=== PATIENT | female | born 1960 | race Caucasian/White ===

== ENCOUNTER 2016-11-09 04:04 | Emergency (ER) ==
[2016-11-09] MEDS ORDERED: BENADRYL IV ONE (04:34)
[2016-11-09] MEDS ORDERED: CLARITIN PO ONE (04:35)
[2016-11-09] MEDS ORDERED: PEPCID IV ONE (04:35)
[2016-11-09] MEDS ORDERED: SODIUM CHLORIDE 0.9% INJ ONE (04:35)
[2016-11-09 04:59] LABS: BASO% 0.5 % (0.0-0.8); EOS# 0.19 X1000 (0.0-0.7); EOS% 2.4 % (0.0-10.0); HEMATOCRIT 43.8 % (37.0-47.0); IMM GRAN# 0.02 X1000 (0.0-0.04); IMM GRAN% 0.3 % (0.0-0.5); LYMPH# 2.36 X1000 (1.2-3.4); LYMPH% 29.8 % (20.5-51.1); MANUAL DIFF NEEDED? NO; MCH 30.6 PG (27-31); MCHC 34.2 g/dL (33-37); MCV 89.4 FL (81-99); MONO# 1.09 X1000 (0.11-0.59); MONO% 13.8 % (1.7-9.3); MPV 9.4 FL (7.4-10.4); NEUT% 53.2 % (42.2-75.2); PLT 339 X1000 (130-400)
[2016-11-09] MEDS ORDERED: PEPCID ONE (05:00)
[2016-11-09 05:04] LABS: INR 1.06; PROTIME 11.2 Seconds (9.2-11.7); PTT 35.4 Seconds (22.0-36.0)
[2016-11-09 05:13] LABS: AGAP 16; ALBUMIN 3.8 g/dL (3.5-5.0); ALKALINE PHOSPHATASE 81 U/L (32-104); BUN 12 mg/dL (8-22); CHLORIDE 95 mmol/L (98-107); CK PROFILE 53 U/L (24-173); COSMO 277; GOT < 5 U/L (10-30); GPT < 5 U/L (10-36); MAGNESIUM 1.8 mg/dL (1.5-2.7); POTASSIUM 3.7 mmol/L (3.5-5.1); SODIUM 135 mmol/L (136-145); TCO2 24 mmol/L (25-35); TOTAL BILIRUBIN 0.85 mg/dL (0.20-1.00); TOTAL PROTEIN 6.4 g/dL (6.3-8.3)
--- NOTE | 2016-11-09 05:35 | PROVIDER DOCUMENTATION ---
HPI-Rash/Wound/ReCheck - General Chief Complaint: General Adult Stated Complaint: GENERAL Time Seen by Provider: 11/09/16 04:13 Source: patient Allergies/Adverse Reactions: Allergies Allergy/AdvReac Type Severity Reaction Status Date / Time Penicillins Allergy ANAPHYLAXIS Verified 11/09/16 04:24 Home Medications: Home Medication List Medication Instructions Recorded Confirmed Last Taken Type Escitalopram Oxalate [Lexapro] 10 mg PO HS #0 07/07/14 11/09/16 11/08/16 Rx Fenofibrate [Tricor] 145 mg PO DAILY #0 tablet 07/07/14 11/09/16 11/08/16 Rx Rivaroxaban [Xarelto] 20 mg PO WSUPPER #0 tablet 07/07/14 11/09/16 11/08/16 Rx Amitriptyline HCl 1 tab PO QHS 11/09/16 11/09/16 11/08/16 History Famotidine [Pepcid] 20 mg PO BID #30 tablet 11/09/16 Unknown Rx Gabapentin 600 mg PO BID 11/09/16 11/09/16 11/08/16 History Loratadine [Claritin] 10 mg PO DAILY #14 tablet 11/09/16 Unknown Rx Losartan/Hydrochlorothiazide 1 tab PO DAILY 11/09/16 11/09/16 11/08/16 History [Losartan-Hctz 100-12.5 mg Tab] Metformin HCl 500 mg PO BID 11/09/16 11/09/16 11/08/16 History Metoprolol Succinate E.r. [Toprol 50 mg PO DAILY 11/09/16 11/09/16 11/08/16 History Xl] Niacin [Niacin ER] 1 tab PO QHS 11/09/16 11/09/16 11/08/16 History Spironolactone 25 mg PO DAILY 11/09/16 11/09/16 11/08/16 History - History of Present Illness-Dermatology Nature of Presenting Problem: WAKE UP FEELING ITCHING EVERY WHERE /BURNING SENSATION OF HER BODY ..NO CP,NO SOB,NO AMS...PT ON NIACIN Location: reports: generalized Quality: reports: burning Onset/Duration: reports: gradual, 1-3 hours ago Timing: reports: still present, constant Context/Associated Symptoms: reports: flushing. denies: insect bite/sting, edema, numbness, paresthesia, sore throat, tingling Identifiable cause?: No Exposure: reports: unknown cause Locality of Occurance: Home Similar Symptoms Previously?: Yes Recently seen or treated by another doctor?: No Review of Systems - Adult - REVIEW OF SYSTEMS - ADULT Constitutional: reports: see HPI All Other Systems: Reviewed and Negative Past History - Adult - PAST MEDICAL HISTORY-ADULT Review of Records: reports: Old Records Reviewed, Nursing Assessment Review, Medications Reviewed, Social history reviewed & non-contributory. Major Childhood Illnesses: reports: denies history Cardiovascular: reports: HTN, hyperlipidemia Respiratory: reports: COPD Gastrointestinal: reports: GERD Genitourinary: reports: denies history Musculoskeletal: reports: arthritis Neurological: reports: CVA, TIA Psychiatric: reports: anxiety Endocrine/Immune: reports: other (THICK BLOOD) Other Conditions: reports: denies history - PRIOR SURGERIES/PROCEDURES Surgical/Procedure History: reports: hysterectomy - IMMUNIZATION STATUS Childhood Immunizations: See Nurse Assessment Flu Vaccine: See Nurse Assessment - FAMILY HISTORY Family History: reviewed, not pertinent - SOCIAL HISTORY Smoking: less than 1 pack/day Provider spent 3-5 mins advising pt. on dangers of tobacco.: Discussed manners to quit use, and f/u contacts for add'l counseling. Substance Use: none presently/history of abuse Alcohol Use Frequency: occasionally Number of drinks per typical drinking period:: 1 drink Living Situation: family Physical Exam-General - PHYSICAL EXAM-ADULT Initial Vital Signs Reviewed: Yes - CONSTITUTIONAL General Appearance: alert, obese, anxious - EYES Eyes: PERRL/EOMI - HEAD, EARS, NOSE, MOUTH & THROAT HENMT: normocephalic/atraumatic, moist mucous membranes, normal ENT inspection, TMs normal, pharynx normal. negative: angioedema - NECK Neck: non-tender, full range of motion, supple - RESPIRATORY Respiratory: chest non-tender, lungs clear, normal breath sounds, no pleuratic chest pain, no respiratory distress, no accessory muscle use - CARDIOVASCULAR Cardiovascular: normal peripheral pulses, regular rate, rhythm, no edema, no gallop - GASTROINTESTINAL (ABDOMEN) Abdominal Exam: normal bowel sounds, non tender, soft, no organomegaly - MUSCULOSKELETAL Back Exam: normal inspection, no CVA tenderness, no vertebral tenderness Extremity: normal range of motion, non-tender, normal gait - SKIN Integumentary: normal turgor, warm/dry, other (FLUSH). negative: erythema, petechiae, rash - NEUROLOGIC Neurologic: molder hand II-XII nml as tested, grossly normal, no motor/sensory deficits - PSYCHIATRIC Psych/Mental Status: normal mood/affect, oriented x 3 Progress - REASSESSMENT Reassessment #1 Time Reassessed: 05:34 (VS ALL WNL /DECREASE ITCHING) Status: improving Departure - Departure Time of Disposition Order: 05:35 DIAGNOSIS: Itching, Adverse drug reaction Disposition: HOME 01 Certified Medical Emergency: Emergent Condition: Stable Additional Instructions: ED Follow Up Instructions:RETURN TO ER IF GET WORSE //SEE PCP THURSDAY //STOP NIACIN You have been treated by a care provider in the Emergency Department. These instructions are being provided to you so you can have an understanding of how to care for yourself upon discharge. Upon discharge from the Emergency Department, you are responsible for making arrangements for follow-up care by a physician of your choice. Take all prescribed medications as directed. Return to the Emergency Department immediately for any new or worsening symptoms. You may call the Physician Referral phone number at [phone] to obtain a list of Physicians who are taking new patients. Prescriptions: Loratadine [Claritin] 10 mg PO DAILY #14 tablet Famotidine [Pepcid] 20 mg PO BID #30 tablet
[2016-11-09] MEDS ORDERED: DECADRON IV ONE (05:37)
[2016-11-09 06:07] VITALS: BP 131/91
== END 2016-11-09 06:10 | disposition home or self-care (01) ==
LOC: ED 04:04
DX: L29.9 Pruritus, unspecified (principal); T50.905A Adverse effect of unspecified drugs, medicaments and biological substances, initial encounter; R20.8 Other disturbances of skin sensation; R23.2 Flushing; I10 Essential (primary) hypertension; E78.5 Hyperlipidemia, unspecified; J44.9 Chronic obstructive pulmonary disease, unspecified; K21.9 Gastro-esophageal reflux disease without esophagitis; M19.90 Unspecified osteoarthritis, unspecified site; F41.9 Anxiety disorder, unspecified; E66.9 Obesity, unspecified; F17.210 Nicotine dependence, cigarettes, uncomplicated; Z79.01 Long term (current) use of anticoagulants; Z79.899 Other long term (current) drug therapy; Z71.6 Tobacco abuse counseling; Z86.73 Personal history of transient ischemic attack (TIA), and cerebral infarction without residual deficits
CPT/HCPCS: 80053; 82550; 82948; 83735; 83880; 84484; 85025; 85379; 85610; 85730; 96374; 96375; J1200; S0028